=== PATIENT | male | born 1955 ===

== ENCOUNTER 2018-04-11 07:52 | Emergency (ER) | payer MEDICAID, OTHER ==
[2018-04-11 07:55] VITALS: BMI 37.8
[2018-04-11] MEDS ORDERED: Tdap Vaccine 0.5 ml Vial (10-64 yrs) IM ONE ×2 (08:08→08:20)
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
[2018-04-11] MEDS ORDERED: Povidone Iodine Topical 10% Sol ONE (08:13)
[2018-04-11 08:50] VITALS: BP 130/70; PULSE 85; RESP 19; TEMP 97.8; O2SAT 98
--- NOTE | 2018-04-11 09:28 | RAD ---
Date of service: 04/11/2018 PROCEDURE: Right Index finger radiographs. HISTORY: pain at PIP COMPARISON: None. TECHNIQUE: AP radiograph of the right hand, as well as spot oblique and lateral images of index finger were obtained. FINDINGS: RIGHT INDEX FINGER: Normal right index finger, without fracture or focal lesion. Remainder of the right hand (as seen on the AP view) grossly intact. JOINTS: Normal. SOFT TISSUES: Normal. OTHER FINDINGS: None. IMPRESSION: Normal right index finger radiographs.
== END 2018-04-11 08:57 | disposition home or self-care (01) ==
LOC: H.ER 07:52
DX: S61.211A Laceration without foreign body of left index finger without damage to nail, initial encounter (principal); W26.8XXA Contact with other sharp object(s), not elsewhere classified, initial encounter; Y99.0 Civilian activity done for income or pay